=== PATIENT | male | born 1995 | race Hispanic/Latino ===

== ENCOUNTER 2017-02-19 06:45 | Emergency (ER) | payer OTHER ==
--- NOTE | 2017-02-19 07:50 | Emergency Department Report ---
Upper Extremity - HPI Chief Complaint: Extremity Injury, Upper Stated Complaint: SMASHED FINGER IN DOOR Time Seen by Provider: 02/19/17 07:49 Upper Extremity: Left Ring Finger (lt finger pain after injury) Occurred When: 1 Day Mechanism: Crush Severity: mild Symptoms: Yes Pain with Movement (lt 4th finger), Yes Limited Range of Movement , Yes Swelling (left 4th finger), Yes Bruising/Ecchymosis (left 4th finger), No Deformity, No Numbness, No Weakness, No Laceration or Abrasion Other History: Patient here complaining that he slammed his left ring finger in car door yesterday around last night he is complaining of swelling, redness pain to the distal tip of digit. Reports patient into nail bed with bruising. Motrin at midnight without any relief. Denies any numbness or tingling to finger. ED Review of Systems ROS: Stated complaint: SMASHED FINGER IN DOOR Other details as noted in HPI Comment: All other systems reviewed and negative Constitutional: denies: chills, fever Respiratory: no symptoms reported Cardiovascular: denies: chest pain, palpitations, edema, syncope Gastrointestinal: denies: abdominal pain, nausea, vomiting Musculoskeletal: arthralgia. denies: back pain, joint swelling, myalgia Skin: change in hair/nails (left nailbed ring finger discolored), other (injury to left ring finger, pain and swelling) Neurological: denies: headache, numbness, paresthesias ED Past Medical Hx - Past Medical History Previous Medical History?: Yes Hx Asthma: Yes Additional medical history: allergies to most animals and most plants - Surgical History Past Surgical History?: Yes Additional Surgical History: septoplasty 11/2011; pins in hands 2000?, bilateral ear tubes 1996 - Family History Family history: no significant - Social History Smoking Status: Current Every Day Smoker Substance Use Type: None - Medications Home Medications: Home Medications Medication Instructions Recorded Confirmed Last Taken Type ALBUTEROL Inhaler [Proair] 2 puff IH QID PRN 02/19/17 02/19/17 Unknown History Ibuprofen [Motrin] 600 mg PO Q8H PRN #15 tablet 02/19/17 Unknown Rx Upper Extremity Exam - Exam General: Vital signs noted. No distress. Alert and acting appropriately. This is a 21-year-old male well-nourished well-developed in no acute distress. Head and Torso: No HEENT Abnormality, No Neck Tenderness, No Chest/Lungs Abnormality, No Abdominal Tenderness, No Back Tenderness Shoulder Exam: Yes Normal Range of Motion in Shoulder, No Shoulder Tenderness, No Clavicle Tenderness, No Shoulder Deformity, No AC Joint Tenderness Arm Exam: No Arm/Humerus Tenderness, No Arm Deformity Elbow: Yes Normal Range of Motion in Elbow, No Elbow Tenderness, No Elbow Deformity Forearm: No Forearm Tenderness, No Forearm Deformity, No Pain with Pronation, No Pain with Supination Wrist: Yes Normal ROM in Wrist, No Wrist Tenderness, No Wrist Deformity, No Snuffbox Tenderness, No Pain with Axial Thumb Compression Hand: Yes Digit Tenderness (left ring finger with mild swelling at distal phalanx with subungual hematoma to nail bed), Yes Normal ROM in Digit(s), No Hand Tenderness, No Hand Deformity, No Digit(s) Deformity, No Tendon Dysfunction CMS Exam: Yes Normal Distal Pulses, Yes Normal Capillary Refill, Yes Normal Distal Sensation, No Broken Skin ED Course Vital Signs 02/19/17 07:38 Temperature 98.2 F Pulse Rate 89 Respiratory 16 Rate Blood Pressure 135/94 O2 Sat by Pulse 99 Oximetry - Reevaluation(s) Reevaluation #1: 02/19/17 09:39 stable throughout ED stay. Received Motrin 800 mg for pain. 02/19/17 09:40 - Procedure Description Procedures done: Procedure to left ring finger: See procedure note for digital block. Area cleansed with Betadine and normal saline and subungual hematoma cauterized. Area against cleansed and sterile dressing placed the site. She tolerated procedure well. ED Medical Decision Making - Radiology Data Radiology results: report reviewed X-ray of left fourth finger reveal no fracture or dislocation to left ring finger - Medical Decision Making ED course: Patient with left fourth finger injury, contusion and subungual hematoma. Seizure note for digital block and procedure on cauterization procedure. Patient tolerated procedure well. His tetanus shot is up-to-date per patient. he was given Motrin 800 mg in emergency room for pain. Patient discharged home with prescription for Motrin and to follow-up with his primary care physician in 2-3 days. Critical care attestation.: If time is entered above; I have spent that time in minutes in the direct care of this critically ill patient, excluding procedure time. ED Disposition Clinical Impression: Arthralgia of left hand Contusion of finger of left hand Qualifiers: Encounter type: initial encounter Finger: ring finger Damage to nail status: without damage Qualified Code(s): S60.042A - Contusion of left ring finger without damage to nail, initial encounter Hematoma, subungual, finger, left Qualifiers: Encounter type: initial encounter Qualified Code(s): S60.10XA - Contusion of unspecified finger with damage to nail, initial encounter Disposition: DISCHARGED TO HOME OR SELFCARE Is pt being admited?: No Does the pt Need Aspirin: No Condition: Stable Instructions: Contusion in Adults (ED), Arthralgia (ED), Subungual Hematoma (ED ) Additional Instructions: Please keep pressure dressing on until tomorrow morning Take Motrin as needed for pain. Follow-up with primary care physician in 2-3 days. Prescriptions: Ibuprofen [Motrin] 600 mg PO Q8H PRN #15 tablet PRN Reason: Pain Referrals: Your, PCP [Other] - 3-5 Days Forms: Accompanied Note, Work/School Release Form(ED)
[2017-02-19] MEDS ORDERED: MOTRIN PO ONE (07:52)
[2017-02-19] MEDS ORDERED: XYLOCAINE 1% MPF 5 mL INFILTRATI ONE (07:52)
--- NOTE | 2017-02-19 08:29 | XRay Report ---
FINAL REPORT EXAM: XR FINGER(S) 2 LT HISTORY: LEFT 4TH DIGIT INJURY / PAIN/ SWELLING TECHNIQUE: Left 4th finger, three views PRIORS: None. FINDINGS: There is no acute fracture seen. There is no dislocations seen. There is no focal osseous lesion identified. IMPRESSION: There is no acute osseous abnormality identified.
[2017-02-19 10:26] VITALS: BP 127/87
== END 2017-02-19 10:27 | disposition home or self-care (01) ==
LOC: ED 06:45
DX: S60.042A Contusion of left ring finger without damage to nail, initial encounter (principal); J45.909 Unspecified asthma, uncomplicated; F17.200 Nicotine dependence, unspecified, uncomplicated; Z98.890 Other specified postprocedural states; Z90.49 Acquired absence of other specified parts of digestive tract; Z88.8 Allergy status to other drugs, medicaments and biological substances; W22.8XXA Striking against or struck by other objects, initial encounter; Y93.89 Activity, other specified; Y92.89 Other specified places as the place of occurrence of the external cause; Y99.8 Other external cause status
CPT/HCPCS: 99283